=== PATIENT | female | born 1990 | race Caucasian/White ===

== ENCOUNTER 2021-11-15 22:50 | Inpatient (IN) | payer OTHER ==
[2021-11-16] MEDS ORDERED: ELECTROLYTE-148 SOLN 1,000 ML IV SCH ×2 (00:55→03:45)
[2021-11-16] MEDS ORDERED: AMPICILLIN SODIUM 2 GM VIAL IVPB ONE (01:00)
[2021-11-16] MEDS ORDERED: AMPICILLIN SODIUM 2 GM VIAL ONE (01:37)
[2021-11-16 01:48] LABS: BASO % 0.5 % (0-2.0); EOS % 2.5 % (0-4.5); LYMPH % 20.4 % (8-40); MCH 29.5 pg (25.7-33.7); MCHC 34.4 g/dl (32.0-36.0); MEAN CELL VOLUME 85.8 fl (80-96); MEAN PLT VOLUME 9.4 fl (7.5-11.1); MONO % 4.9 % (3.8-10.2); NEUT % 71.7 % (42.8-82.8); PLATELET COUNT 185 10^3/uL (134-434); RBC 3.73 M/mm3 (3.60-5.2); WHITE BLOOD COUNT 9.7 K/mm3 (4.0-10.0)
[2021-11-16 01:54] LABS: COCAINE, UR NEGATIVE (NEGATIVE); METHADONE, UR NEGATIVE (NEGATIVE); OPIATES, URI NEGATIVE (NEGATIVE); PHENCYCLIDINE,URINE NEGATIVE (NEGATIVE); URINE BARBITURATES NEGATIVE (NEGATIVE); URINE BENZODIAZEPINES NEGATIVE (NEGATIVE)
[2021-11-16 02:03] LABS: INR 0.93 (0.83-1.09); PROTHROMBIN TIME (PATIENT) 10.7 SEC (9.7-13.0)
[2021-11-16 02:06] LABS: ACTIVATED PTT 27.1 SECONDS (25.2-36.5); CALCIUM 8.8 mg/dL (8.5-10.1)
[2021-11-16 02:08] LABS: BLOOD UREA NITROGEN 9.8 mg/dL (7-18)
[2021-11-16 02:10] LABS: CREATININE 0.6 mg/dL (0.55-1.3)
[2021-11-16 02:11] LABS: URINE AMPHETAMINES POSITIVE (NEGATIVE)
[2021-11-16 02:32] VITALS: BMI 36.3
[2021-11-16] MEDS ORDERED: OXYTOCIN 30 UNITS in 0.9% NS 30 UNIT/500 ML INFUS.BAG IVPB ONE (03:31)
[2021-11-16] MEDS ORDERED: OXYTOCIN 30 UNITS in 0.9% NS 30 UNIT/500 ML INFUS.BAG IVPB SCH (03:45)
[2021-11-16] MEDS ORDERED: AMPICILLIN SODIUM 1 GM VIAL ONE (04:52)
[2021-11-16] MEDS: AMPICILLIN SODIUM 1 GM VIAL IVPB SCH ×3 (04:55→13:27)
[2021-11-16] MEDS ORDERED: FENTANYL/BUPIVACAINE/NS/PF - PCEA - 50 ML DISP.SYRIN EP ONE (05:06)
[2021-11-16] MEDS ORDERED: BUPIVACAINE HCL/PF 0.25% (2.5MG/ML) 10 ML VIAL ONE (05:28)
[2021-11-16] MEDS ORDERED: LIDOCAINE HCL 1% PRESERVATIVE FREE - 30ML VIAL ONE (05:50)
[2021-11-16] MEDS ORDERED: FENTANYL/BUPIVACAINE/NS/PF - PCEA - 50 ML DISP.SYRIN EP SCH ×2 (06:45→06:56)
[2021-11-16] MEDS ORDERED: NALOXONE HCL 0.4 MG/ML VIAL IVPUSH PRN (06:45)
[2021-11-16] MEDS ORDERED: OXYTOCIN 20 UNITS in 0.9% NS 20 UNIT/1,000 ML INFUS.BAG IV ONE (08:30)
[2021-11-16] MEDS ORDERED: BENZOCAINE 28 GM HEMORRHOIDAL OINTMENT TP PRN (08:52)
[2021-11-16] MEDS ORDERED: METHYLERGONOVINE MALEATE 0.2 MG/1 ML AMP IM PRN (08:52)
[2021-11-16] MEDS ORDERED: oxyCODONE HCL 5 MG TABLET PO PRN (08:52)
[2021-11-16] MEDS ORDERED: WITCH HAZEL 50% (TUCKS) 40 PAD/JAR PAD TP PRN (08:52)
[2021-11-16] MEDS ORDERED: BENZOCAINE 20% 57 GM BOTTLE TP PRN (08:52)
[2021-11-16] MEDS ORDERED: BISACODYL 10 MG SUPP.RECT RC PRN (08:52)
[2021-11-16] MEDS ORDERED: OXYTOCIN 20 UNITS in 0.9% NS 20 UNIT/1,000 ML INFUS.BAG IV SCH (09:00)
[2021-11-16] MEDS ORDERED: IBUPROFEN 600 MG TABLET (FP) PO ONE (09:16)
[2021-11-16] MEDS: IBUPROFEN 600 MG TABLET (FP) PO PRN ×2 (09:20→21:59)
[2021-11-16 10:21] LABS: CORD BASE EXCESS -3.3 mmol/L (0-2); CORD HCO3 22.3 mmHg (20-29); CORD pH 7.343 (7.14-7.44)
[2021-11-16 10:22] LABS: CORD BASE EXCESS -1.5 mmol/L (0-2); CORD HCO3 24.6 mmHg (20-29); CORD PCO2 46.7 mmHg (30-78); CORD pH 7.339 (7.14-7.44)
[2021-11-16] MEDS ORDERED: ACETAMINOPHEN 325 MG TABLET (FP) ONE (11:11)
[2021-11-16] MEDS: ACETAMINOPHEN 325 MG TABLET (FP) PO PRN ×2 (11:15→15:12)
[2021-11-16] MEDS: BUPRENORPHINE HCL 8 MG TAB.SUBL SL SCH ×2 (13:35→21:56)
[2021-11-17] MEDS: ACETAMINOPHEN 325 MG TABLET (FP) PO PRN ×3 (02:20→12:31)
[2021-11-17] MEDS: BUPRENORPHINE HCL 8 MG TAB.SUBL SL SCH ×2 (06:33→14:24)
[2021-11-17] MEDS ORDERED: PATIENT'S OWN MEDICATION (NON-FORMULARY) (Amphet Asp/Amphet/D-Amphet [Adderall 10 Mg Table PO SCH (07:00)
[2021-11-17 08:27] LABS: BASO % 0.4 % (0-2.0); HEMATOCRIT 30.9 % (32.4-45.2); HEMOGLOBIN 10.4 GM/dL (10.7-15.3); MCH 29.4 pg (25.7-33.7); MCHC 33.5 g/dl (32.0-36.0); MEAN CELL VOLUME 87.9 fl (80-96); MEAN PLT VOLUME 10.3 fl (7.5-11.1); MONO % 6.5 % (3.8-10.2); NEUT % 64.1 % (42.8-82.8); PLATELET COUNT 174 10^3/uL (134-434); RBC 3.52 M/mm3 (3.60-5.2); RDW 13.7 % (11.6-15.6); WHITE BLOOD COUNT 8.8 K/mm3 (4.0-10.0)
[2021-11-17] MEDS ORDERED: DIPHTH,PERTUSS(ACELL),TET 0.5 ML DISP.SYRIN IM ONE (10:00)
[2021-11-17] MEDS ORDERED: FLU VACC QS2021-22(6MOS UP)/PF 60 MCG/0.5 ML SYRINGE IM ONE (10:00)
[2021-11-17 15:01] VITALS: BP 132/88; PULSE 70; TEMP 97.8
[2021-11-17] MEDS ORDERED: SENNOSIDES/DOCUSATE COMBO (SENNA PLUS) TABLET (UD) PO PRN (22:00)
== END 2021-11-17 15:00 | disposition home or self-care (01) | DRG 560 ==
LOC: JLDR 22:50 → J3W 11-16 13:40
PROVIDERS: ADMIT Obstetrics & Gynecology; ATTEND Obstetrics & Gynecology
PROC: 10E0XZZ Delivery of Products of Conception, External Approach (ICD-10-PCS; principal; 2021-11-16)
DX: O42.013 Preterm premature rupture of membranes, onset of labor within 24 hours of rupture, third trimester (principal); Z3A.36 36 weeks gestation of pregnancy; Z37.0 Single live birth; Z86.59 Personal history of other mental and behavioral disorders
CPT/HCPCS: 36415; 36600; 59409; 80048; 80307; 82803; 82962; 85025; 85610; 85730; 86780; 86850; 86900; 86901; C9803; U0003; U0005